=== PATIENT | male | born 1945 | race Caucasian/White ===

== ENCOUNTER 2018-12-19 07:58 | Day surgery (SDC) | payer BC ==
--- NOTE | 2018-12-19 06:40 | History and Physical - [place] ---
CHIEF COMPLAINT/HISTORY OF CHIEF COMPLAINT: This patient presents with a history of an intractable lumbar radiculopathy. Due to the failure of all therapies a spinal cord stimulator trial was conducted on 11/30/18 with 75-85% pain control. Due to the failure of all therapies and the success of the trial, the patient presents for implantation of a permanent system. PAST MEDICAL HISTORY: Hypertension. PAST SURGICAL HISTORY: List to be provided. MEDICATIONS ON ADMISSION: List to be provided. ALLERGIES: CODEINE, CECLOR AND TETANUS. FAMILY/PSYCHOSOCIAL HISTORY: Social history - Noncontributory. Family history - Diabetes, coronary artery disease, hypertension, and cancer. SYSTEMS REVIEW: The patient is appropriate in no acute distress. The remainder of the systems review is positive for degenerative arthritis. PHYSICAL EXAMINATION: Height is 5'10", no weight identified. Vital signs - Blood pressure 140/90. MUSCULOSKELETAL: Current examination shows diffuse tenderness throughout the lumbar spine. Range of motion does produce pain moving into both lower extremities. There currently are no motor or sensory abnormalities. Ambulation - No assistive device utilized. NEUROLOGIC: Cranial nerves are intact. IMPRESSION: LUMBAR RADICULOPATHY, ICD-10 CODE M54.16 AND M54.17. PLAN: The patient is here for a spinal cord stimulator trial to determine if the implantation of a permanent system can be of any value in pain control after a successful trial. The procedure will be considered outpatient, although an overnight stay will be evaluated. JOB NUMBER: [id number] MTDD
[~2018-12-19 07:58] MED LIST: ACETAMINOPHEN 1,000 MG/100 ML BTL IVPB ONE; CLINDAMYCIN 600MG/50ML PREMIX 600 MG/50 ML BAG IVPB ONE; FAMOTIDINE 20MG TABLET PO ONE; MECLIZINE 25 MG TABLET PO ONE; METOCLOPRAMIDE 10 MG TABLET PO ONE
[2018-12-19] MEDS ORDERED: MIDAZOLAM HCL 2MG/2ML VIAL IV ONE (07:59)
[2018-12-19] MEDS ORDERED: PROPOFOL 10 MG/ML VIAL IV ONE (07:59)
[2018-12-19] MEDS ORDERED: LIDOCAINE 2% MDV (20MG/ML) 20ML VIAL IV ONE (07:59)
[2018-12-19] MEDS ORDERED: FENTANYL PF 100MCG/2ML VIAL IV ONE (07:59)
[2018-12-19] MEDS ORDERED: RINGERS SOLUTION,LACTATED 1,000 ML IV ONE ×2 (09:07→11:34)
[2018-12-19] MEDS ORDERED: LIDOCAINE 1% W/EPI 1:100,000 MDV 20 ML VIAL SQ ONE ×2 (10:47)
[2018-12-19] MEDS ORDERED: BUPIVACAINE 0.5% W/EPI MPF 30 ML VIAL SQ ONE ×2 (10:47)
--- NOTE | 2018-12-20 12:41 | RADIOLOGY REPORT ---
EXAM: THORACOLUMBAR SPINE, SINGLE VIEW HISTORY: S/P SCS IMPLANT. TECHNIQUE: A single frontal view of the thoracolumbar spine was obtained. Comparison: Fluoroscopic imaging conducted same day, and x-rays 12/05/18. FINDINGS: New generating devices present overlying the region of the right abdomen with electronic monitoring leads entering the region of the central canal near the level of the T12. Distal electronic stimulating components are present extending from the region of T5 through T8. IMPRESSION: POST SURGICAL CHANGES DESCRIBED ABOVE. JOB NUMBER: [id number] MTDD
--- NOTE | 2018-12-21 08:41 | Operative Note ---
DATE OF SURGERY: 12/19/2018 PREOPERATIVE DIAGNOSIS: Lumbar radiculopathy, ICD10 code M54.16 and M54.17. OPERATION: 1. Fluoroscopic-guided epidural access left T11-12, placement of spinal cord stimulator lead 1, [employer] Infinion 16, 6 electrodes positioned left T6. 2. Fluoroscopic-guided epidural access left T12-L1, placement of spinal cord stimulator lead 2, [employer] Infinion 16, 6 electrodes positioned right T6. 3. Complex programming of lead 1 over 20 minutes followed by complex programming of lead 2 over 20 minutes. 4. Incision and subcutaneous dissection and anchoring of lead 1 and lead 2 to deep supraspinous fascia with a [employer] locking anchor and nonabsorbable suture. 5. Incision and subcutaneous dissection and creation of subcutaneous pouch at right flank, site picked by patient for the generator, [employer] WaveWriter programmable rechargeable. 6. Tunneling between pouches, placement of external portion of lead 1 and lead 2 into generator pouch, each lead interfaced with generator. 7. Closure of both incisions using Stratafix suture 2-0 fascia, 3-0 skin, and Dermabond closure. A complex recovery room programming external generator home trial 2 stimulators 20 minutes. SURGEON: Alfredo Garcia DO ANESTHESIA: Local with sedation. ANESTHESIA PROVIDER: Dilshad Langford INDICATION: This patient presents with a history of intractable lumbar radiculopathy. Due to the failure of therapy, a spinal cord stimulator trial was conducted with 75% to 80% pain control. Due to the failure of therapy and the success of the trial, the patient presents today for implantation of permanent system. PROCEDURE: Intravenous line, vital sign monitoring, IV sedation. Prepped and draped with sterile technique. Under imaging, the epidural interspace left of the midline at 11-12 and 12-1 were both infiltrated with local. Using 2 standard Epimed needles with loss of resistance, the space was accessed. Atraumatic. No blood, no CSF. At 11-12, spinal cord stimulator lead 1, a [employer] Infinion 16, 6 electrodes was advanced, navigated, and positioned left of midline at T6. With the access at 12-1, spinal cord stimulator lead 2, [employer] Infinion 16, 6 electrodes was navigated and positioned right of the midline at T6. With the patient awake, complex programming of 2 leads performed 20 minutes left, 20 minutes right resulting in complete pattern stimulation across the back and into the legs. Patient indicating we had all the areas of the pain. He was given the option to implant and continue to program or remove. He opted to implant. The question was repeated with the same response. The skin below both needles was then infiltrated with local. Incision was made and subcutaneous dissection was conducted to supraspinous fascia. Each lead was then anchored to the supraspinous fascia with separate [employer] locking anchors and nonabsorbable suture. At the right flank, a site picked by the patient for the generator, skin infiltrated, incision made, and subcutaneous dissection was conducted to form a pouch of suitable size and depth for the generator, a [employer] programmable rechargeable. The skin below both needles had already been circumferentially dissected to form a pouch. Once the leads were tunneled into the generator pouch after the pouch of appropriate size was formed, each lead was interfaced to the generator. Antibiotic irrigation and Bovie for hemostasis. The generator and its connections were inserted into the pouch. The leads were then placed into their pouch, and then both incisions were closed using Stratafix suture, 2-0 fascia, and 3-0 skin. A Dermabond closure was then used to approximate the edges of both wounds. He was transported to recovery room stable. No side effects from the procedure or sedation. When fully awake and alert, complex programming was performed over 20 minutes reestablishing stimulation and pain control to all the appropriate areas. The patient and were then instructed on the use of the system, provided information on error messaging. Programming had resulted in complete stimulation patterns that the patient was comfortable and pleased with. DISCHARGE INSTRUCTIONS: 1. The sites to remain clean and dry. No showering or bathing in any way that disrupt dressings. If it happens, he contacts the clinic. The Dermabond will allow showering but he should not sit in water. 2. Standard medications resumed including the antibiotic Levaquin 500 mg once a day for 14 days. 3. The office to contact the patient in 12-24 hours. He will come to see the clinic to evaluate incisions in 7-10 days. Through this period of time, he will limit bend, lift, push, pull and keep his activities controlled. We will evaluate when we see the patient in the office. Any problems, he can contact us by phone. All other instructions provided. AN
== END 2018-12-19 12:42 | disposition home or self-care (01) ==
LOC: SUR 07:58
PROVIDERS: ATTEND Pain Medicine Interventional Pain Medicine
DX: M54.16 Radiculopathy, lumbar region (principal); M54.17 Radiculopathy, lumbosacral region; I10 Essential (primary) hypertension; E11.9 Type 2 diabetes mellitus without complications; E78.00 Pure hypercholesterolemia, unspecified; N40.0 Benign prostatic hyperplasia without lower urinary tract symptoms; G47.33 Obstructive sleep apnea (adult) (pediatric)
CPT/HCPCS: 63650; 63685; 01936; 95972; 72020; J3010; C1820; C1883; J7120